=== PATIENT | male | born 1950 ===

== ENCOUNTER 2017-10-16 16:08 | Emergency (ER) | payer MEDICARE ==
[2017-10-16 17:44] VITALS: BP 150/72
--- NOTE | 2017-10-16 18:15 | RAD ---
HISTORY: Shortness of breath COMPARISONS: None VIEWS: 4: Frontal dual-energy and lateral views of the chest. FINDINGS: CARDIOMEDIASTINAL SILHOUETTE: The aorta is tortuous. The cardiomediastinal silhouette is otherwise unremarkable. JAVON: The javon are normal. PLEURA: The costophrenic angles are sharp. No pleural abnormalities are noted. LUNG PARENCHYMA: The lungs are clear. ABDOMEN: The upper abdomen is clear. There is no subphrenic gas. BONES AND SOFT TISSUES: No bone or soft tissue abnormalities are noted. OTHER: None. IMPRESSION: NO ACTIVE CARDIOPULMONARY DISEASE.
--- NOTE | 2017-10-16 18:20 | UC ---
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 HAS SUBJECTIVE FEVER. NO COUGH OR NASAL CONGESTION. DID NOT GET A FLU SHOT THIS SEASON. IS CONCERNED ABOUT PNA. - History of Current Complaint Chief Complaint: UCGeneralIllness Stated Complaint: FEVER, TIRED Time Seen by Provider: 10/16/17 17:51 Hx Obtained From: Patient Onset/Duration: Gradual Onset, Lasting Days, Still Present Timing: Constant Current Severity: Moderate Dyspnea At: Exertion - WITH SPEAKING Aggrevating Factors: Nothing Alleviating Factors: Nothing Associated Signs & Symptoms: Positive: Fever. Negative: Chest Pain w/Cough, Chest Pain Unrelated to Cough, Nasal Congestion, Dizzy - Allergy/Home Medications Allergies/Adverse Reactions: Allergies Allergy/AdvReac Type Severity Reaction Status Date / Time No Known Allergies Allergy Verified 10/16/17 17:45 Home Medications: Home Medications Magnesium Oxide TAB* [MagOx 400 TAB*] PO DAILY WITH MEAL 10/16/17 [History] PMH/Surg Hx/FS Hx/Imm Hx Cardiovascular History: Cardiac Disease, Hypertension - Surgical History Surgical History: Yes Surgery Procedure, Year, and Place: appendectomy 28 yrs ago - Family History Known Family History: Positive: Hypertension - Social History Alcohol Use: None Substance Use Type: None Smoking Status (MU): Former Smoker Length of Time of Smoking/Using Tobacco: 17 years - Immunization History Most Recent Influenza Vaccination: never Most Recent Tetanus Shot: never Most Recent Pneumonia Vaccination: never Review of Systems Constitutional: Fever, Fatigue ENT: Sore Throat Respiratory: Shortness Of Breath Cardiovascular: Negative Gastrointestinal: Negative All Other Systems Reviewed And Are Negative: Yes Physical Exam Triage Information Reviewed: Yes Appearance: Well-Appearing, No Pain Distress, Well-Nourished Vital Signs: Initial Vital Signs Temp 98.6 F 10/16/17 17:39 Pulse 73 10/16/17 17:39 Resp 18 10/16/17 17:39 BP 150/72 10/16/17 17:39 Pulse Ox 100 10/16/17 17:39 Vital Signs Reviewed: Yes Eyes: Positive: Conjunctiva Clear ENT: Positive: Hearing grossly normal, Pharynx normal, TMs normal Neck: Positive: Supple, Nontender, No Lymphadenopathy Respiratory Exam: Normal Cardiovascular Exam: Normal Abdomen Description: Positive: Soft Musculoskeletal: Positive: No Edema Neurological: Positive: Alert Psychological: Positive: Age Appropriate Behavior Skin: Negative: rashes Diagnostics - Laboratory Diagnostic Studies Completed/Ordered: SWAB POSITIVE INFLUENZA B - Radiology CXR Xray Interpretation: No Acute Changes Radiology Interpretation Completed By: Radiologist Shortness of Breath Dx - Differential Dx/Diagnosis Provider Diagnoses: INFLUENZA B Discharge - Discharge Plan Condition: Stable Disposition: HOME Prescriptions: Oseltamivir CAP* [Tamiflu CAP*] 75 mg PO BID #9 cap Patient Education Materials: Influenza (ED) Referrals: Patrick Higuera MD [Primary Care Provider] - If Needed Additional Instructions: CXR UNREMARKABLE. SWAB POSITIVE FOR INFLUENZA B. TAMIFLU TWICE DAILY FOR 5 DAYS. OTC MEDS NEEDED FOR FEVER, BODY ACHES. STAY WELL HYDRATED AND RESTED. SEEK FOLLOW-UP IF YOU ARE NOT IMPROVING EXPECTED. GO TO ER WITHOUT FAIL IF YOU DEVELOP WORSENING SHORTNESS OF BREATH, CHEST PAIN, NAUSEA, SWEATS, DIZZINESS OR ANY OTHER CONCERNING SYMPTOMS.
[2017-10-16] MEDS ORDERED: Oseltamivir CAP* 75 MG CAP PO ONE (18:25)
== END 2017-10-16 18:37 | disposition home or self-care (01) ==
LOC: UCEAST 16:08
DX: J10.1 Influenza due to other identified influenza virus with other respiratory manifestations (principal); Z87.891 Personal history of nicotine dependence
CPT/HCPCS: 71046; 87502; 99202; A9270-GY; G0463